=== PATIENT | male | born 1955 | race Caucasian/White ===

== ENCOUNTER → 2023-03-10 09:18 | Outpatient (REF) | payer MEDICARE, SELFPAY | LOC: HWRAD 09:18 | PROVIDERS: ATTENDING PHYSICIAN Nurse Practitioner Adult Health; FAMILY PHYSICIAN Internal Medicine | DX: M54.9 Dorsalgia, unspecified (principal); G89.11 Acute pain due to trauma | CPT/HCPCS: 72100 ==

== ENCOUNTER → 2023-04-25 06:34 | Outpatient (REF) | payer MEDICARE, SELFPAY | LOC: MRI 06:34 | PROVIDERS: ATTENDING PHYSICIAN Nurse Practitioner Adult Health; FAMILY PHYSICIAN Internal Medicine | DX: M54.50 Low back pain, unspecified (principal); M54.17 Radiculopathy, lumbosacral region; M54.16 Radiculopathy, lumbar region; M46.1 Sacroiliitis, not elsewhere classified | CPT/HCPCS: 72148 ==

== ENCOUNTER → 2023-06-22 07:24 | Outpatient (REF) | payer MEDICARE, SELFPAY | LOC: HWRAD 07:24 | PROVIDERS: ATTENDING PHYSICIAN Internal Medicine Critical Care Medicine; FAMILY PHYSICIAN Internal Medicine | DX: F17.210 Nicotine dependence, cigarettes, uncomplicated (principal) | CPT/HCPCS: 71271 ==

== ENCOUNTER → 2023-06-25 07:09 | Outpatient (REF) | payer MEDICARE, SELFPAY ==
[2023-06-25 09:02] LABS: Urine Albumin Negative (Neg - Trace); Urine Bilirubin Negative (Negative); Urine Character Clear (Clear); Urine Color Yellow; Urine Glucose Negative (Negative); Urine Ketone Negative (Negative); Urine Leukocyte Negative (Negative); Urine Nitrite Negative (Negative); Urine Occult Blood 2+ (Negative); Urine Specific Gravity 1.015 (<1.030); Urine Urobilinogen Negative (Neg - 1+)
[2023-06-25 09:07] LABS: % Basophils 0.7 % (0-2); % Eosinophils 2.5 % (0-6); % Immature Granulocytes 0.3 % (0-0.5); % Lymphocytes 21.5 % (20.5-51.1); % Monocytes 5.7 % (1.7-9.3); % Neutrophils 69.3 % (42.2-75.2); Absolute Basophils 0.1 10^3/uL (0-0.2); Absolute Eosinophils 0.2 10^3/uL (0-0.7); Absolute Monocytes 0.5 10^3/uL (0.1-0.6); Absolute Neutrophils 6.3 10^3/uL (1.4-6.5); Hematocrit 40.6 % (39.0-52.0); Hemoglobin 13.6 g/dL (13.0-18.0); Mean Corp Hgb Conc. 33.5 g/dL (33.0-37.0); Mean Corpuscular Hgb 28.8 pg (27.0-31.0); Mean Platelet Volume 9.8 fL (7.4-10.4); Nucleated Red Blood Cells % 0 % (-); Platelet Count 226 10^3/uL (130-400); Red Blood Cell Count 4.72 10^6/uL (4.70-6.10); Red Cell Dist. Width 14.5 % (11.5-14.5); White Blood Cell Count 9.1 10^3/uL (4.8-10.8)
[2023-06-25 09:17] LABS: ALT (SGPT) 17 U/L (0-50); AST (SGOT) 20 U/L (17-59); Albumin 3.8 g/dl (3.5-5.0); Alkaline Phosphatase 99 U/L (38-126); Blood Urea Nitrogen 10 mg/dl (9-20); Calcium 9.2 mg/dl (8.4-10.2); Carbon Dioxide 29 mmol/L (22-30); Chloride 105 mmol/L (98-107); Glucose 133 mg/dl (70-99); HDL Cholesterol 47 mg/dl; LDL Cholesterol, Calculated 81 mg/dl; Potassium 4.3 mmol/L (3.5-5.1); Sodium 141 mmol/L (135-145); Total Bilirubin 0.5 mg/dl (0.2-1.3); Total Cholesterol 163 mg/dl (50-199); Total Protein 6.5 g/dl (6.3-8.2); Triglyceride 177 mg/dl (10-149); Very Low Density Lipoprotein 35 mg/dl (0-30); eGFR > 60.00
[2023-06-25 09:25] LABS: Urine Red Blood Cell 50-60 /HPF (0-2); Urine Squamous Cell 0-2 /LPF (Few)
[2023-06-25 09:26] LABS: Urine White Cell 0-2 /HPF (0-5)
[2023-06-25 09:38] LABS: Glycohemoglobin (HgbA1c) 6.3 % (4.0-5.6)
[2023-06-25 09:42] LABS: TSH 3.28 uIU/ml (0.47-4.68)
== END ==
LOC: HWLAB 07:09
PROVIDERS: ATTENDING PHYSICIAN Internal Medicine
DX: E78.2 Mixed hyperlipidemia (principal); I10 Essential (primary) hypertension; R73.01 Impaired fasting glucose; R60.0 Localized edema
CPT/HCPCS: 36415; 80053; 80061; 81003; 81015; 83036; 84443; 85025

== ENCOUNTER → 2023-08-17 11:42 | Outpatient (REF) | payer MEDICARE, SELFPAY ==
[2023-08-17 15:29] LABS: Uric Acid 6.9 mg/dl (3.5-8.5)
[2023-08-17 15:50] LABS: Erythrocyte Sed Rate 21 mm/hour (0-20)
[2023-08-19 15:58] LABS: Lyme Antibody Screen, EIA Negative (Negative); Rheumatoid Agglutinin Less Than 10 IU (<10 IU)
[2023-08-20 01:35] LABS: ANA, IgG Reflex to HEp-2 None Detected (None Detected)
== END ==
LOC: HWLAB 11:42
PROVIDERS: ATTENDING PHYSICIAN Podiatrist; FAMILY PHYSICIAN Internal Medicine
DX: M05.80 Other rheumatoid arthritis with rheumatoid factor of unspecified site (principal); M25.472 Effusion, left ankle
CPT/HCPCS: 36415; 84550; 85652; 86038; 86140; 86430; 86618

== ENCOUNTER → 2023-09-04 07:05 | Outpatient (REF) | payer MEDICARE, SELFPAY | LOC: MRI 3T 07:05 | PROVIDERS: ATTENDING PHYSICIAN Physical Medicine & Rehabilitation; FAMILY PHYSICIAN Internal Medicine | DX: M72.2 Plantar fascial fibromatosis (principal) | CPT/HCPCS: 73718 ==

== ENCOUNTER → 2023-09-20 10:23 | Outpatient (REF) | payer MEDICARE, SELFPAY | LOC: HWCARD 10:23 | PROVIDERS: ATTENDING PHYSICIAN Nurse Practitioner Family | DX: Z01.818 Encounter for other preprocedural examination (principal) | CPT/HCPCS: 93005 ==

== ENCOUNTER → 2024-01-19 15:54 | Outpatient (REF) | payer MEDICARE, SELFPAY | LOC: HWRCS 15:54 | PROVIDERS: ATTENDING PHYSICIAN Nuclear Medicine Nuclear Cardiology; FAMILY PHYSICIAN Internal Medicine | DX: I49.1 Atrial premature depolarization (principal); I10 Essential (primary) hypertension; R06.02 Shortness of breath; R94.31 Abnormal electrocardiogram [ECG] [EKG] | CPT/HCPCS: 93306 ==

== ENCOUNTER → 2024-02-07 12:53 | Outpatient (REF) | payer MEDICARE, SELFPAY | LOC: HWRAD 12:53 | PROVIDERS: ATTENDING PHYSICIAN Nurse Practitioner Family | DX: R60.0 Localized edema (principal) | CPT/HCPCS: 93970 ==

== ENCOUNTER → 2024-04-24 13:48 | Outpatient (REF) | payer OTHER, SELFPAY | LOC: RAD 13:48 | PROVIDERS: ATTENDING PHYSICIAN Internal Medicine | DX: I87.2 Venous insufficiency (chronic) (peripheral) (principal) | CPT/HCPCS: 93925 ==

== ENCOUNTER → 2024-05-16 06:28 | Outpatient (REF) | payer OTHER, SELFPAY ==
[2024-05-16 09:26] LABS: Hematocrit 36.6 % (39.0-52.0); Hemoglobin 12.2 g/dL (13.0-18.0); Mean Corp Hgb Conc. 33.3 g/dL (33.0-37.0); Mean Corpuscular Hgb 29.7 pg (27.0-31.0); Mean Corpuscular Volume 89.1 fL (80.0-94.0); Platelet Count 211 10^3/uL (130-400); Red Blood Cell Count 4.11 10^6/uL (4.70-6.10); White Blood Cell Count 8.8 10^3/uL (4.8-10.8)
[2024-05-16 09:56] LABS: ALT (SGPT) 14 U/L (0-50); AST (SGOT) 16 U/L (17-59); Albumin 4.1 g/dl (3.5-5.0); Alkaline Phosphatase 91 U/L (38-126); Blood Urea Nitrogen 15 mg/dl (9-20); Calcium 8.9 mg/dl (8.4-10.2); Carbon Dioxide 28 mmol/L (22-30); Chloride 107 mmol/L (98-107); Glucose 124 mg/dl (70-99); Potassium 4.1 mmol/L (3.5-5.1); Sodium 141 mmol/L (135-145); Total Bilirubin 0.7 mg/dl (0.2-1.3); Total Protein 6.6 g/dl (6.3-8.2); eGFR > 60.00
== END ==
LOC: HWLAB 06:28
PROVIDERS: ATTENDING PHYSICIAN Otolaryngology Facial Plastic Surgery; FAMILY PHYSICIAN Internal Medicine
DX: G47.33 Obstructive sleep apnea (adult) (pediatric) (principal)
CPT/HCPCS: 36415; 80053; 85027

== ENCOUNTER → 2024-06-13 07:56 | Outpatient (REF) | payer OTHER, SELFPAY | LOC: HWEVLT 07:56 | PROVIDERS: ATTENDING PHYSICIAN Radiology Vascular & Interventional Radiology | DX: I83.893 Varicose veins of bilateral lower extremities with other complications (principal) | CPT/HCPCS: 93971 ==

== ENCOUNTER 2024-06-13 16:41 | Emergency (ER) | payer OTHER, SELFPAY ==
[2024-06-13 16:46] VITALS: BP 149/69
[2024-06-13 17:26] LABS: % Basophils 0.8 % (0-2); % Eosinophils 2.9 % (0-6); % Immature Granulocytes 0.5 % (0-0.5); % Neutrophils 64.8 % (42.2-75.2); Absolute Basophils 0.1 10^3/uL (0-0.2); Absolute Eosinophils 0.3 10^3/uL (0-0.7); Absolute Lymphocytes 2.1 10^3/uL (1.2-3.4); Absolute Monocytes 0.6 10^3/uL (0.1-0.6); Absolute Neutrophils 5.7 10^3/uL (1.4-6.5); Mean Corp Hgb Conc. 33.3 g/dL (33.0-37.0); Mean Corpuscular Hgb 28.9 pg (27.0-31.0); Mean Corpuscular Volume 86.7 fL (80.0-94.0); Mean Platelet Volume 9.6 fL (7.4-10.4); Nucleated Red Blood Cells % 0 % (-); Platelet Count 236 10^3/uL (130-400); Red Blood Cell Count 4.15 10^6/uL (4.70-6.10); Red Cell Dist. Width 14.1 % (11.5-14.5); White Blood Cell Count 8.8 10^3/uL (4.8-10.8)
[2024-06-13 17:30] LABS: ALT (SGPT) 11 U/L (0-50); AST (SGOT) 15 U/L (17-59); Alkaline Phosphatase 86 U/L (38-126); Blood Urea Nitrogen 14 mg/dl (9-20); Calcium 8.8 mg/dl (8.4-10.2); Carbon Dioxide 29 mmol/L (22-30); Chloride 105 mmol/L (98-107); Glucose 113 mg/dl (70-99); Potassium 4.5 mmol/L (3.5-5.1); Sodium 140 mmol/L (135-145); Total Bilirubin 0.8 mg/dl (0.2-1.3); Total Protein 6.6 g/dl (6.3-8.2); eGFR > 60.00
[2024-06-13 17:38] LABS: NT-proBNP 26.3 pg/ml
[2024-06-13 19:58] VITALS: BP 138/74
[2024-06-13 20:00] VITALS: BP 140/65
--- NOTE | 2024-06-13 20:06 | ED.GENMED ---
History of Present Illness
General
Chief Complaint: Swelling
Time Seen by Provider: 06/13/24 20:06
History of Present Illness
History of Present Illness:
TIME OF INITIAL ENCOUNTER:
HPI: Patient presents with lower extremity edema over the last couple of months. He does have a history of COPD and does not have a history of heart failure. He states he has had negative ultrasounds of the lower extremities for DVT. He states he
is up on his feet a lot.
EXAM:
GENERAL: Well appearing in no distress
HEENT: Moist oral mucosa
CARDIOVASCULAR: No murmurs, normal heart rate, regular rhythm, No chest wall tenderness
PULMONARY: No respiratory distress, moving air well but he does have some wheezing
ABDOMEN: Soft with no peritoneal signs, no tenderness
NEUROLOGIC: Excellent strength all extremities, no coordination deficits
PSYCHIATRIC: Appropriate mental status, normal insight and judgement
EXTREMITIES: Nontender, 2+ bilateral lower extremity edema with weeping, moves all extremities equally
SKIN: There is some faint erythema noted to the distal lower extremities
NUMBER AND COMPLEXITY OF PROBLEMS ADDRESSED AT THE ENCOUNTER
� Chronic conditions affecting care: COPD, melanoma, depression
� Acute Exacerbation and/or Progression of Chronic Illness: This is an acute problem
� Differential Diagnosis includes: Poor nutritional state, CHF, lymphedema, anemia, cellulitis
AMOUNT AND/OR COMPLEXITY OF DATA TO BE REVIEWED AND ANALYZED
� I performed an independent evaluation of and my interpretation is:
EKG:
CT:
X-rays:
Laboratory Studies: White count normal, hemoglobin 12.0, BNP 26, albumin normal, renal function normal
Other:
� Review of other/old records: I reviewed the note from Jen Bear from earlier today.
� Clinical information was obtained by an independent historian: I spoke to at bedside
� Prescriptions/Medications Considered but not given:
� Further testing considered but not performed:
RISK OF COMPLICATIONS AND/OR MORBIDITY OR MORTALITY OF PATIENT MANAGEMENT
� Social determinants of health affecting care: Lives at home, is retired
� Discussion with other providers:
� Escalation of care including admission/observation vs risk of discharge considered: Normal albumin, normal BNP, white count normal with only questionable signs of cellulitis on exam. Recommended compression stockings and
trying to keep the leg elevated. Will recommend short increase in furosemide dosing as well.
ANY OTHER UPDATES:
Past History
Past History
ED Past Medical History: Hypercholesterolemia and Psychiatric
ED Past Surgical History: None and Orthopedic (Spinal stimulator); Negative Appendectomy, Bowel resection, Brain or Cholecystectomy
Social History
Tobacco: Smoker
Alcohol: None
Drug: None
Personal:
Living: with family
Employment: Not employed
Family History
Family History: Other
Phy Exam
Physical Exam
Physical Exam:
See HPI
Scores
Heart Failure Risk
Heart Failure Risk Score: Not Applicable
Course
Orders/Labs/Results
Orders:
Orders
06/13/24 16:58
Complete Blood Count/With Diff Urgent
Comprehensive Metabolic Panel Urgent
Pro-BNP [NT-proBNP] Urgent
06/13/24 20:15
Cephalexin Monohydrate [Keflex] 500 mg PO NOW STA
Furosemide [Lasix] 40 mg IV NOW STA
Ipratropium/Albuterol Sulfate [Duoneb] 3 ml INH R NOW STA
Abnormal Lab Results
06/13/24
16:58
RBC 4.15 L 10^6/uL
(4.70-6.10)
Hgb 12.0 L g/dL
(13.0-18.0)
Hct 36.0 L %
(39.0-52.0)
Glucose 113 H mg/dl
(70-99)
AST 15 L U/L
(17-59)
06/13/24 16:58
05/06/25 16:58
Vital Signs
Initial and Last Documented VS:
Initial Vital Signs
Temp Pulse Resp BP Pulse Ox
36.8 C 72 16 149/69 95
06/13/24 16:46 06/13/24 16:46 06/13/24 16:46 06/13/24 16:46 06/13/24 16:46
Last Documented Vital Signs
Temp Pulse Resp BP Pulse Ox
37.1 C 72 16 140/65 97
06/13/24 20:08 06/13/24 16:46 06/13/24 16:46 06/13/24 20:00 06/13/24 20:08
*Critical Care Note
Total Time (30-74mins, 75-104mins- exclusive of procedures): Not Applicable
ED Attending Note
-
Portions of this chart may have been created with voice recognition software.� Occasional wrong word or��sound alike� substitutions may have occurred due to the inherent limitations of voice recognition software.
Discharge Plan
Departure
Patient Disposition: Home (Routine Discharge)
Date of Disposition: 06/13/24
Time of Disposition: 20:15
Patient with high blood pressure during this ER visit?: Yes
Discharge Problem:
Edema
Instructions: Dependent Edema (DC), BLOOD PRESSURE
Prescriptions:
New
cephalexin 500 mg capsule
500 mg PO Q8H Qty: 21 0RF
No Action
trazodone 100 MG tablet
100 mg PO HS
simvastatin 20 MG tablet
20 mg PO HS
duloxetine 60 MG capsule,delayed release(DR/EC)
60 mg PO BID
cyclobenzaprine 10 MG tablet
10 mg PO HS
morphine 30 MG tablet extended release
30 mg PO TID Qty: 0 0RF
Rx Instructions:
Take as directed by pain management.
Prescribed already by pain management.
pantoprazole 40 MG tablet,delayed release (/EC)
40 mg PO DAILY
gabapentin 300 MG capsule
300 mg PO BID
albuterol sulfate 18 GM HFA aerosol inhaler
2 puff inhalation PRN PRN (Reason: SOB, Wheezes)
acetaminophen [Tylenol Extra Strength] 500 MG tablet
1,000 mg PO Q6 0RF
oxycodone 15 MG tablet
15 mg PO Q4HPRN PRN (Reason: moderate-severe pain) 0RF
aspirin 81 MG tablet,delayed release (DR/EC)
81 mg PO DAILY Qty: 0 0RF
Rx Instructions:
Resume on 01/05/21
lisinopril 20 MG tablet
40 mg PO DAILY
Rx Instructions:
Hold if systolic blood pressure <130 while on Oxycodone
docusate sodium 100 MG capsule
100 mg PO DAILY
aripiprazole 5 mg Tablet
5 mg PO DAILY
Sutab 1.479-0.188- 0.225 gram Tablet
0 tab PO PER PKG DIR
Referrals:
Noe Regalado DO [Family Provider] -
Activity Restrictions/Additional Instructions:
Try to keep the legs elevated is much as possible. Use compression stockings. Your white blood cell count is normal but we can try antibiotic in case there is infection as well. Double your Lasix dosing for the next 2 days. Return here if worse
or other concerns.
Interventions
Interventions:
*Risk Screen - Suicide Last Done: 06/13/24 16:50
*General Assessment Last Done: 06/13/24 16:50
*Neglect/Abuse Screening Last Done: 06/13/24 20:00
*ED- Fall Risk Assessment Last Done: 06/13/24 20:00
*ED COVID-19 Vaccine History Last Done: 06/13/24 20:00
ED- Cardiac Assessment Last Done: 06/13/24 20:08
ED- Pulmonary Assessment Last Done: 06/13/24 20:08
ED-Skin Assessment Last Done: 06/13/24 20:09
Discharge Date and Time
Print Language: [place]
[2024-06-13] MEDS: LASIX 40 MG IV (20:40)
[2024-06-13] MEDS: DUONEB 3 ML INH (20:42)
[2024-06-13] MEDS: KEFLEX 500 MG PO (20:43)
[2024-06-13 21:00] VITALS: BP 141/78
== END 2024-06-13 21:17 | disposition home or self-care (01) ==
LOC: EMR 16:41
PROVIDERS: Emergency Medicine; EMERGENCY PHYSICIAN Emergency Medicine; FAMILY PHYSICIAN Internal Medicine
DX: R60.0 Localized edema (principal); J44.9 Chronic obstructive pulmonary disease, unspecified; E78.00 Pure hypercholesterolemia, unspecified; F17.200 Nicotine dependence, unspecified, uncomplicated; Z90.49 Acquired absence of other specified parts of digestive tract
CPT/HCPCS: 96374; 94640; 99284; 80053; 83880; 85025

== ENCOUNTER → 2024-07-14 13:07 | Outpatient (REF) | payer OTHER, SELFPAY | LOC: DHSLP 13:07 | PROVIDERS: ATTENDING PHYSICIAN Otolaryngology Facial Plastic Surgery | DX: G47.33 Obstructive sleep apnea (adult) (pediatric) (principal) | CPT/HCPCS: 95800 ==

== ENCOUNTER → 2024-08-08 08:07 | Outpatient (REF) | payer OTHER, SELFPAY | LOC: WOUND 08:07 | PROVIDERS: ATTENDING PHYSICIAN Surgery; FAMILY PHYSICIAN Internal Medicine | DX: I87.313 Chronic venous hypertension (idiopathic) with ulcer of bilateral lower extremity (principal); L97.221 Non-pressure chronic ulcer of left calf limited to breakdown of skin; L97.211 Non-pressure chronic ulcer of right calf limited to breakdown of skin; I87.2 Venous insufficiency (chronic) (peripheral); F17.210 Nicotine dependence, cigarettes, uncomplicated; R60.0 Localized edema; I89.0 Lymphedema, not elsewhere classified | CPT/HCPCS: 29581; 99204; 99406 ==

== ENCOUNTER → 2024-08-15 09:43 | Outpatient (REF) | payer OTHER, SELFPAY | LOC: WOUND 09:43 | PROVIDERS: ATTENDING PHYSICIAN Surgery; FAMILY PHYSICIAN Internal Medicine | DX: I87.313 Chronic venous hypertension (idiopathic) with ulcer of bilateral lower extremity (principal); L97.221 Non-pressure chronic ulcer of left calf limited to breakdown of skin; L97.211 Non-pressure chronic ulcer of right calf limited to breakdown of skin; I87.2 Venous insufficiency (chronic) (peripheral); R60.0 Localized edema; I89.0 Lymphedema, not elsewhere classified; F17.210 Nicotine dependence, cigarettes, uncomplicated | CPT/HCPCS: 29581; 99213 ==

== ENCOUNTER → 2024-08-22 10:46 | Outpatient (REF) | payer OTHER, SELFPAY | LOC: WOUND 10:46 | PROVIDERS: ATTENDING PHYSICIAN Surgery; FAMILY PHYSICIAN Internal Medicine | DX: I87.313 Chronic venous hypertension (idiopathic) with ulcer of bilateral lower extremity (principal); L97.221 Non-pressure chronic ulcer of left calf limited to breakdown of skin; L97.211 Non-pressure chronic ulcer of right calf limited to breakdown of skin; I87.2 Venous insufficiency (chronic) (peripheral); R60.0 Localized edema; F17.210 Nicotine dependence, cigarettes, uncomplicated; I89.0 Lymphedema, not elsewhere classified | CPT/HCPCS: 99212 ==

== ENCOUNTER → 2024-09-01 07:52 | Outpatient (REF) | payer OTHER, SELFPAY | LOC: HWRAD 07:52 | PROVIDERS: ATTENDING PHYSICIAN Internal Medicine Critical Care Medicine; FAMILY PHYSICIAN Internal Medicine | DX: Z87.891 Personal history of nicotine dependence (principal) | CPT/HCPCS: 71271 ==

== ENCOUNTER → 2024-09-19 10:16 | Outpatient (REF) | payer OTHER, SELFPAY | LOC: WOUND 10:16 | PROVIDERS: ATTENDING PHYSICIAN Surgery; FAMILY PHYSICIAN Internal Medicine | DX: I87.313 Chronic venous hypertension (idiopathic) with ulcer of bilateral lower extremity (principal); L97.221 Non-pressure chronic ulcer of left calf limited to breakdown of skin; L97.211 Non-pressure chronic ulcer of right calf limited to breakdown of skin; I87.2 Venous insufficiency (chronic) (peripheral); F17.210 Nicotine dependence, cigarettes, uncomplicated; R60.0 Localized edema; I89.0 Lymphedema, not elsewhere classified | CPT/HCPCS: 29581; 99213 ==

== ENCOUNTER → 2024-09-26 09:50 | Outpatient (REF) | payer OTHER, SELFPAY | LOC: WOUND 09:50 | PROVIDERS: ATTENDING PHYSICIAN Surgery; FAMILY PHYSICIAN Internal Medicine | DX: I87.313 Chronic venous hypertension (idiopathic) with ulcer of bilateral lower extremity (principal); L97.221 Non-pressure chronic ulcer of left calf limited to breakdown of skin; L97.211 Non-pressure chronic ulcer of right calf limited to breakdown of skin; I87.2 Venous insufficiency (chronic) (peripheral); F17.210 Nicotine dependence, cigarettes, uncomplicated; R60.0 Localized edema; I89.0 Lymphedema, not elsewhere classified | CPT/HCPCS: 29581 ==

== ENCOUNTER → 2024-10-02 11:13 | Outpatient (REF) | payer OTHER, SELFPAY | LOC: HWRAD 11:13 | PROVIDERS: ATTENDING PHYSICIAN Podiatrist Foot & Ankle Surgery; FAMILY PHYSICIAN Internal Medicine | DX: M77.31 Calcaneal spur, right foot (principal); M19.271 Secondary osteoarthritis, right ankle and foot; M77.32 Calcaneal spur, left foot; M19.272 Secondary osteoarthritis, left ankle and foot | CPT/HCPCS: 73610; 73630 ==

== ENCOUNTER → 2024-10-06 09:42 | Outpatient (REF) | payer OTHER, SELFPAY | LOC: WOUND 09:42 | PROVIDERS: ATTENDING PHYSICIAN Surgery; FAMILY PHYSICIAN Internal Medicine | DX: I87.313 Chronic venous hypertension (idiopathic) with ulcer of bilateral lower extremity (principal); L97.211 Non-pressure chronic ulcer of right calf limited to breakdown of skin; I87.2 Venous insufficiency (chronic) (peripheral); F17.210 Nicotine dependence, cigarettes, uncomplicated; R60.0 Localized edema; I89.0 Lymphedema, not elsewhere classified | CPT/HCPCS: 99213 ==

== ENCOUNTER → 2024-10-23 09:17 | Outpatient (REF) | payer OTHER, SELFPAY | LOC: WOUND 09:17 | PROVIDERS: ATTENDING PHYSICIAN Surgery; FAMILY PHYSICIAN Internal Medicine | DX: I87.313 Chronic venous hypertension (idiopathic) with ulcer of bilateral lower extremity (principal); L97.211 Non-pressure chronic ulcer of right calf limited to breakdown of skin; L97.221 Non-pressure chronic ulcer of left calf limited to breakdown of skin; I87.2 Venous insufficiency (chronic) (peripheral); R60.0 Localized edema; I89.0 Lymphedema, not elsewhere classified; F17.210 Nicotine dependence, cigarettes, uncomplicated | CPT/HCPCS: 99213 ==

== ENCOUNTER → 2024-10-31 10:56 | Outpatient (REF) | payer OTHER, SELFPAY | LOC: WOUND 10:56 | PROVIDERS: ATTENDING PHYSICIAN Surgery; FAMILY PHYSICIAN Internal Medicine | DX: I87.313 Chronic venous hypertension (idiopathic) with ulcer of bilateral lower extremity (principal); L97.211 Non-pressure chronic ulcer of right calf limited to breakdown of skin; L97.221 Non-pressure chronic ulcer of left calf limited to breakdown of skin; I87.2 Venous insufficiency (chronic) (peripheral); F17.210 Nicotine dependence, cigarettes, uncomplicated; R60.0 Localized edema; I89.0 Lymphedema, not elsewhere classified | CPT/HCPCS: 99213 ==

== ENCOUNTER → 2024-11-07 09:19 | Outpatient (REF) | payer OTHER, SELFPAY | LOC: WOUND 09:19 | PROVIDERS: ATTENDING PHYSICIAN Surgery; FAMILY PHYSICIAN Internal Medicine | DX: I87.313 Chronic venous hypertension (idiopathic) with ulcer of bilateral lower extremity (principal); L97.211 Non-pressure chronic ulcer of right calf limited to breakdown of skin; L97.221 Non-pressure chronic ulcer of left calf limited to breakdown of skin; I87.2 Venous insufficiency (chronic) (peripheral); F17.210 Nicotine dependence, cigarettes, uncomplicated; R60.0 Localized edema; I89.0 Lymphedema, not elsewhere classified | CPT/HCPCS: 99213 ==

== ENCOUNTER → 2024-11-10 07:28 | Outpatient (REF) | payer OTHER, SELFPAY ==
[2024-11-10 10:02] LABS: Hematocrit 34.8 % (39.0-52.0); Hemoglobin 11.3 g/dL (13.0-18.0); Mean Corp Hgb Conc. 32.5 g/dL (33.0-37.0); Mean Corpuscular Volume 87.0 fL (80.0-94.0); Platelet Count 236 10^3/uL (130-400); Red Cell Dist. Width 14.5 % (11.5-14.5)
[2024-11-10 10:18] LABS: ALT (SGPT) 13 U/L (0-50); AST (SGOT) 16 U/L (17-59); Albumin 3.9 g/dl (3.5-5.0); Alkaline Phosphatase 102 U/L (38-126); Blood Urea Nitrogen 32 mg/dl (9-20); Calcium 9.1 mg/dl (8.4-10.2); Carbon Dioxide 28 mmol/L (22-30); Chloride 104 mmol/L (98-107); Glucose 109 mg/dl (70-99); Potassium 4.4 mmol/L (3.5-5.1); Sodium 138 mmol/L (135-145); Total Protein 6.9 g/dl (6.3-8.2); eGFR 43.37
[2024-11-10 10:19] LABS: INR 0.89; PT 12.3 Sec (11.4-14.6)
[2024-11-10 10:20] LABS: APTT 26.9 Sec (23.4-35.0)
== END ==
LOC: HWLAB 07:28
PROVIDERS: ATTENDING PHYSICIAN Otolaryngology Facial Plastic Surgery; FAMILY PHYSICIAN Internal Medicine
DX: G47.33 Obstructive sleep apnea (adult) (pediatric) (principal)
CPT/HCPCS: 36415; 80053; 85027; 85610; 85730

== ENCOUNTER → 2024-11-21 09:19 | Outpatient (REF) | payer OTHER, SELFPAY | LOC: WOUND 09:19 | PROVIDERS: ATTENDING PHYSICIAN Surgery; FAMILY PHYSICIAN Internal Medicine | DX: I87.313 Chronic venous hypertension (idiopathic) with ulcer of bilateral lower extremity (principal); L97.211 Non-pressure chronic ulcer of right calf limited to breakdown of skin; L97.221 Non-pressure chronic ulcer of left calf limited to breakdown of skin; I87.2 Venous insufficiency (chronic) (peripheral); F17.210 Nicotine dependence, cigarettes, uncomplicated; R60.0 Localized edema; I89.0 Lymphedema, not elsewhere classified | CPT/HCPCS: 99213 ==

== ENCOUNTER → 2024-12-08 08:45 | Outpatient (REF) | payer OTHER, SELFPAY | LOC: WOUND 08:45 | PROVIDERS: ATTENDING PHYSICIAN Surgery; FAMILY PHYSICIAN Internal Medicine | DX: I87.313 Chronic venous hypertension (idiopathic) with ulcer of bilateral lower extremity (principal); L97.211 Non-pressure chronic ulcer of right calf limited to breakdown of skin; L97.221 Non-pressure chronic ulcer of left calf limited to breakdown of skin; I87.2 Venous insufficiency (chronic) (peripheral); F17.210 Nicotine dependence, cigarettes, uncomplicated; R60.0 Localized edema; I89.0 Lymphedema, not elsewhere classified | CPT/HCPCS: 99212 ==

== ENCOUNTER → 2024-12-18 09:35 | Outpatient (REF) | payer OTHER, SELFPAY ==
[2024-12-18 13:07] LABS: Blood Urea Nitrogen 26 mg/dl (9-20); Calcium 8.8 mg/dl (8.4-10.2); Carbon Dioxide 31 mmol/L (22-30); Chloride 105 mmol/L (98-107); Glucose 109 mg/dl (70-99); Potassium 4.6 mmol/L (3.5-5.1); Sodium 138 mmol/L (135-145); eGFR 46.64
== END ==
LOC: HWLAB 09:35
PROVIDERS: ATTENDING PHYSICIAN Nuclear Medicine Nuclear Cardiology; FAMILY PHYSICIAN Internal Medicine
DX: I10 Essential (primary) hypertension (principal)
CPT/HCPCS: 36415; 80048